=== PATIENT | male | born 1980 | race Caucasian/White ===

== ENCOUNTER 2019-03-19 15:12 | Emergency (ER) | payer SELFPAY ==
[2019-03-19] MEDS ORDERED: Penicillin VK TAB* 250 MG PO ONE (16:57)
[2019-03-19] MEDS ORDERED: Ketorolac INJ* 30 MG/ML 1 ML VIAL IM ONE (16:57)
--- NOTE | 2019-03-19 16:59 | ED ---
Throat Pain/Nasal Congestion - HPI Summary HPI Summary: 38-year-old male presents with dental pain for the past week and a half. She denies any injury. She denies any fevers. No chest pain shortness breath. No vomiting. No difficulty swallowing. States the pain in his lower cheek. States that his gums are receding. He does not currently have a dentist. He states he's been taking Tylenol for his pain. - History of Current Complaint Chief Complaint: EDDentalPain Time Seen by Provider: 03/19/19 15:40 - Allergies/Home Medications Allergies/Adverse Reactions: Allergies Allergy/AdvReac Type Severity Reaction Status Date / Time No Known Allergies Allergy Verified 03/19/19 15:22 Home Medications: Home Medications Ibuprofen TAB* [Advil TAB*] 600 mg PO Q6H PRN 03/19/19 [History Confirmed ] PMH/Surg Hx/FS Hx/Imm Hx Endocrine/Hematology History: Denies: Hx Anticoagulant Therapy Respiratory History: Denies: Hx Asthma Infectious Disease History: No Infectious Disease History: Denies: History Other Infectious Disease, Traveled Outside the in Last 30 Days - Family History Known Family History: Positive: Non-Contributory - Social History Alcohol Use: Occasionally Substance Use Type: Reports: Marijuana Smoking Status (MU): Heavy Every Day Tobacco Smoker Type: Cigarettes Amount Used/How Often: 1 ppd Have You Smoked in the Last Year: Yes Review of Systems Negative: Fever Positive: Dental Pain Negative: Chest Pain Negative: Shortness Of Breath All Other Systems Reviewed And Are Negative: Yes Physical Exam Triage Information Reviewed: Yes Vital Signs On Initial Exam: Initial Vitals Temp Pulse Resp BP Pulse Ox 98.3 F 83 16 145/78 97 03/19/19 15:19 03/19/19 15:19 03/19/19 15:19 03/19/19 15:19 03/19/19 15:19 Vital Signs Reviewed: Yes Appearance: Positive: Well-Appearing Skin: Positive: Warm, Dry Head/Face: Positive: Normal Head/Face Inspection Eyes: Positive: Normal, EOMI, ALEXI, Conjunctiva Clear ENT: Positive: Pharynx normal, TMs normal Dental: Positive: Percussion Tenderness @ - thorughout, Gross Decay/Caries @ - throughout, Other - redness to gums Respiratory/Lung Sounds: Positive: Clear to Auscultation, Breath Sounds Present Cardiovascular: Positive: Normal, RRR Abdomen Description: Positive: Nontender, Soft Bowel Sounds: Positive: Present Musculoskeletal: Positive: Normal Neurological: Positive: Normal Psychiatric: Positive: Normal Diagnostics - Vital Signs Vital Signs Temp Pulse Resp BP Pulse Ox 03/19/19 15:19 98.3 F 83 16 145/78 97 - Laboratory Lab Statement: Any lab studies that have been ordered have been reviewed, and results considered in the medical decision making process. EENT Course/Dx - Course Course Of Treatment: 38-year-old male presents with dental pain for the past week and a half. She denies any injury. She denies any fevers. No chest pain shortness breath. No vomiting. No difficulty swallowing. States the pain in his lower cheek. States that his gums are receding. He does not currently have a dentist. He states he's been taking Tylenol for his pain. On exam has poor dentition. Some erythema noted to gums. Will treat with penicillin. Told to follow dentist. Patient understands agrees with plan. - Differential Diagnoses Differential Diagnoses: Dental Abscess, Dental Caries, Fractured Tooth - Diagnoses Provider Diagnoses: Dental infection Discharge - Sign-Out/Discharge Documenting (check all that apply): Patient Departure Patient Received Moderate/Deep Sedation with Procedure: No - Discharge Plan Condition: Good Disposition: HOME Prescriptions: Penicillin VK TAB* [Penicillin VK 250 mg Tab*] 500 mg PO QID #27 tab Patient Education Materials: Toothache (ED) Referrals: [facility] [Outside] Additional Instructions: Take antibiotics: 4 times a day for 7 days, first dose given in ED Use ibuprofen or tyenlol every 6 hours Avoid hard, crunchy food until seen by dentist Follow up with dentist as soon as possible Return to ED if develop any new or worsening symptoms Establish care with primary care physician - Billing Disposition and Condition Condition: GOOD Disposition: Home
[2019-03-19 18:01] VITALS: BP 121/80
== END 2019-03-19 17:35 | disposition home or self-care (01) ==
LOC: ED 15:12
DX: K04.7 Periapical abscess without sinus (principal); F17.210 Nicotine dependence, cigarettes, uncomplicated
CPT/HCPCS: 96372; 99282; A9270-GY; J1885